=== PATIENT | female | born 1965 | race Caucasian/White ===

== ENCOUNTER 2016-07-24 07:43 | Inpatient (IN) | payer BC ==
[2016-07-05 08:08] VITALS: Ht 157.5 cm; Wt 83.1 kg
[2016-07-05 09:03] VITALS: BP_SYST 128; RESP 20; TEMP 98.2
[~2016-07-24] VITALS: Ht 157.5 cm; Wt 83.1 kg
[2016-07-24] VITALS (25 sets, daily range): BP systolic 109–160; RESP 12–20; TEMP 97.2–98.3
[~2016-07-24 07:43] MED LIST: BACITRACIN 50,000 UNITS INJ IRRIG ONE
[2016-07-24] MEDS ORDERED: GLYCOPYRROLATE 0.2 MG/ML VIAL IV ONE (09:20)
[2016-07-24] MEDS ORDERED: SCOPOLAMINE PATCH TRANSDERM ONE (09:20)
[2016-07-24] MEDS ORDERED: LIDOCAINE 1% BUFFERED 1 ML SYR INTRADERM PRN (09:20)
[2016-07-24] MEDS ORDERED: LACT RINGERS 1,000 ML IV SCH (09:20)
[2016-07-24] MEDS ORDERED: MIDAZOLAM 2 MG/2 ML INJ IV ONE (09:20)
[2016-07-24] MEDS ORDERED: ONDANSETRON 4 MG VIAL IV ONE (09:20)
[2016-07-24] MEDS ORDERED: SODIUM CHLORIDE 0.9% IV ONE ×4 (09:40)
[2016-07-24] MEDS ORDERED: TRANEXAMIC ACID IV ONE ×4 (09:40)
[2016-07-24] MEDS ORDERED: CEFAZOLIN 2,000 MG in SODIUM CHLORIDE 0.9% 100 ML IV ONE (10:00)
[2016-07-24] MEDS ORDERED: ROPIVACAINE 0.5% 139 MG, EPINEPHrine 1:1,000 0.2 MG, KETOROLAC INJ 30 MG, MORPHINE 10 MG SUBQ ONE ×4 (10:00)
[2016-07-24] MEDS ORDERED: NEOSTIGMINE 10 MG/10 ML VIAL IV ONE (11:13)
[2016-07-24] MEDS ORDERED: ROCURONIUM 50 MG VIAL IV ONE (11:13)
[2016-07-24] MEDS ORDERED: KETAMINE INJ 50 MG/ML VIAL IV ONE (11:13)
[2016-07-24] MEDS ORDERED: LIDOCAINE 2% SYR 5 ML IV ONE (11:13)
[2016-07-24] MEDS ORDERED: FENTANYL 100 MCG/2 ML AMP IV ONE ×2 (11:13)
[2016-07-24] MEDS ORDERED: DEXAMETHASONE 4 MG/ML VIAL IV ONE (11:13)
[2016-07-24] MEDS ORDERED: ESMOLOL 100 MG/10 ML VL IV ONE (11:13)
[2016-07-24] MEDS ORDERED: DILAUDID 1 MG/ML AMP IV ONE (11:13)
[2016-07-24] MEDS ORDERED: PROPOFOL 20 ML PER ML IV ONE (11:13)
[2016-07-24] MEDS ORDERED: MORPHINE 2 MG/ML SYR IV PRN (11:50)
[2016-07-24] MEDS ORDERED: MEPERIDINE 25 MG/ML IV PRN (11:50)
[2016-07-24] MEDS ORDERED: MORPHINE 4 MG/ML SYR IV PRN (11:50)
[2016-07-24] MEDS ORDERED: OXYCODONE 5 MG TAB PO PRN (11:50)
[2016-07-24] MEDS ORDERED: ONDANSETRON 4 MG VIAL IV PRN ×2 (11:50→13:45)
[2016-07-24] MEDS ORDERED: SALINE FLUSH 10 ML FLUSH PRN (13:45)
[2016-07-24] MEDS ORDERED: D5-1/2-NS W/KCL 20MEQ/L 1,000 ML IV SCH (13:45)
[2016-07-24] MEDS ORDERED: KETOROLAC 30 MG/ML VIAL IV PRN (13:45)
[2016-07-24] MEDS ORDERED: MAG HYDROX 30 ML UDC PO PRN (13:45)
[2016-07-24] MEDS ORDERED: ONDANSETRON 4 MG TAB PO PRN (13:45)
[2016-07-24] MEDS: DILAUDID 1 MG/ML AMP IV PRN ×3 (14:01→14:13)
[2016-07-24] MEDS ORDERED: BUPIVACA/EPI 0.5% 50ML EPIDURAL ONE (14:03)
[2016-07-24] MEDS ORDERED: MISSING DOSE XX ONE (17:10)
[2016-07-24] MEDS: CEFAZOLIN 2,000 MG in SODIUM CHLORIDE 0.9% 100 ML IV SCH ×2 (17:15→23:07)
[2016-07-24] MEDS: DIPHENHYDRAMINE 25 MG CAP PO PRN (17:15)
[2016-07-24] MEDS ORDERED: Ibuprofen 800 MG TAB PO PRN (19:30)
[2016-07-24] MEDS: SALINE FLUSH 10 ML FLUSH SCH (19:52)
[2016-07-24] MEDS ORDERED: DOCUSATE SOD 100 MG CAP PO SCH (21:00)
[2016-07-24] MEDS: PANTOPRAZOLE 40 MG TAB PO SCH (21:00)
[2016-07-24] MEDS: DOCUSATE SOD 100 MG CAP PO SCH (21:01)
[2016-07-24] MEDS: SENNA 8.6 MG TAB PO SCH (21:04)
[2016-07-24] MEDS: MORPHINE 2 MG/ML SYR IV PRN (23:13)
[2016-07-25] MEDS: CEFAZOLIN 2,000 MG in SODIUM CHLORIDE 0.9% 100 ML IV SCH ×2 (04:10→10:10)
[2016-07-25 04:42] VITALS: BP_SYST 131; RESP 16; TEMP 98.4
[2016-07-25] MEDS: SODIUM CHLORIDE 0.9% FLUSH BAG 500 ML IV SCH (05:42)
[2016-07-25] MEDS: PANTOPRAZOLE 40 MG TAB PO SCH ×2 (05:44→17:26)
[2016-07-25] MEDS: FONDAPARINUX 2.5 MG SYR SUBQ SCH (05:44)
[2016-07-25 07:42] VITALS: BP_SYST 128; RESP 20; TEMP 98.3
[2016-07-25] MEDS: SALINE FLUSH 10 ML FLUSH SCH ×2 (08:30→21:25)
[2016-07-25] MEDS: DOCUSATE SOD 100 MG CAP PO SCH ×2 (08:30→21:25)
[2016-07-25] MEDS: MULTIVITS/MINERALS (THERAGRAN M) TAB PO SCH (08:31)
[2016-07-25] MEDS: POLYETHYLENE GLYCOL 17 GM PACKET PO SCH (08:31)
[2016-07-25] MEDS: SENNA 8.6 MG TAB PO SCH ×3 (08:31→22:08)
[2016-07-25] MEDS ORDERED: MAG HYDROX 30 ML UDC PO SCH (09:00)
[2016-07-25] MEDS ORDERED: ACETAMINOPHEN 500 MG TAB PO PRN (09:40)
[2016-07-25] MEDS: ALU/MAG/SIM 30 ML UDC PO PRN (10:07)
[2016-07-25] MEDS: MORPHINE 2 MG/ML SYR IV PRN ×2 (10:15→17:27)
[2016-07-25 12:11] VITALS: BP_SYST 137; RESP 20; TEMP 98.4
[2016-07-25] MEDS ORDERED: BISACODYL 10 MG SUPP RECTAL PRN (15:55)
[2016-07-25] MEDS ORDERED: FLEET ENEMA 132 ML BTL RECTAL PRN (15:55)
[2016-07-25 16:18] VITALS: BP_SYST 150; RESP 18; TEMP 98.2
[2016-07-25 19:43] VITALS: BP_SYST 146; RESP 18; TEMP 98.1
[2016-07-25] MEDS: MAG HYDROX 30 ML UDC PO SCH (21:25)
[2016-07-25] MEDS: ZOLPIDEM 5 MG TAB PO PRN (21:25)
[2016-07-25 23:45] VITALS: BP_SYST 140; RESP 18; TEMP 98
[2016-07-26] MEDS: MORPHINE 4 MG/ML SYR IV PRN ×4 (00:59→22:08)
[2016-07-26] MEDS: PANTOPRAZOLE 40 MG TAB PO SCH ×2 (06:00→17:05)
[2016-07-26] MEDS: SODIUM CHLORIDE 0.9% FLUSH BAG 500 ML IV SCH (06:00)
[2016-07-26] MEDS: FONDAPARINUX 2.5 MG SYR SUBQ SCH (06:00)
[2016-07-26 08:03] VITALS: BP_SYST 144; RESP 18; TEMP 98.6
[2016-07-26] MEDS: MULTIVITS/MINERALS (THERAGRAN M) TAB PO SCH (08:51)
[2016-07-26] MEDS: DOCUSATE SOD 100 MG CAP PO SCH ×2 (08:51→22:08)
[2016-07-26] MEDS: POLYETHYLENE GLYCOL 17 GM PACKET PO SCH (08:51)
[2016-07-26] MEDS: SALINE FLUSH 10 ML FLUSH SCH ×2 (08:51→20:00)
[2016-07-26] MEDS: MAG HYDROX 30 ML UDC PO SCH ×2 (08:51→22:08)
[2016-07-26] MEDS: SENNA 8.6 MG TAB PO SCH (08:51)
[2016-07-26] MEDS: OXYCODONE/APAP 7.5/325 TAB PO PRN ×3 (09:37→22:08)
[2016-07-26 12:03] VITALS: BP_SYST 146; RESP 20; TEMP 98.3
[2016-07-26 15:42] VITALS: BP_SYST 132; RESP 18; TEMP 98.5
[2016-07-26 19:23] VITALS: BP_SYST 134; RESP 16; TEMP 98.8
[2016-07-26] MEDS: ZOLPIDEM 5 MG TAB PO PRN (22:08)
[2016-07-26 22:30] VITALS: BP_SYST 150; RESP 16; TEMP 98.8
[2016-07-27] MEDS: MORPHINE 4 MG/ML SYR IV PRN ×4 (00:46→06:50)
[2016-07-27] MEDS: OXYCODONE/APAP 7.5/325 TAB PO PRN ×3 (03:28→12:40)
[2016-07-27 03:34] VITALS: BP_SYST 126; RESP 18; TEMP 99.3
[2016-07-27] MEDS: DIPHENHYDRAMINE 25 MG CAP PO PRN (04:00)
[2016-07-27] MEDS: SODIUM CHLORIDE 0.9% FLUSH BAG 500 ML IV SCH (04:39)
[2016-07-27] MEDS: FONDAPARINUX 2.5 MG SYR SUBQ SCH (05:22)
[2016-07-27] MEDS: PANTOPRAZOLE 40 MG TAB PO SCH (07:00)
[2016-07-27 07:29] VITALS: BP_SYST 128; RESP 18; TEMP 98.5
[2016-07-27] MEDS: SALINE FLUSH 10 ML FLUSH SCH (08:00)
[2016-07-27] MEDS: MAG HYDROX 30 ML UDC PO SCH (08:00)
[2016-07-27] MEDS: POLYETHYLENE GLYCOL 17 GM PACKET PO SCH (08:07)
[2016-07-27] MEDS: MULTIVITS/MINERALS (THERAGRAN M) TAB PO SCH (08:08)
[2016-07-27] MEDS: SENNA 8.6 MG TAB PO SCH (08:08)
[2016-07-27] MEDS: DOCUSATE SOD 100 MG CAP PO SCH (08:08)
[2016-07-27] MEDS ORDERED: REMOVE SCOPALAMINE PATCH XX ONE (09:20)
[2016-07-27 11:54] VITALS: BP_SYST 136; RESP 16; TEMP 98.5
[2016-07-27] MEDS: ALU/MAG/SIM 30 ML UDC PO PRN (12:43)
[2016-07-27 12:56] VITALS: BP_SYST 136; RESP 16; TEMP 98.5
== END 2016-07-27 14:59 | disposition home health service (06) | DRG 470 ==
LOC: ENRESERVDT → ENRESERVTM → SDS 08:57 → ENPENDDIS 08:57 → 2NO 14:33 → EEVIPCON 16:35
PROVIDERS: ADMIT Internal Medicine; ATTEND Internal Medicine
PROC: 3E0T3CZ (ICD-10-PCS; 2016-07-24)
PROC: 0SRD0J9 Replacement of Left Knee Joint with Synthetic Substitute, Cemented, Open Approach (ICD-10-PCS; principal; 2016-07-24 11:00)
DX: M17.12 Unilateral primary osteoarthritis, left knee (principal); E89.0 Postprocedural hypothyroidism; I25.2 Old myocardial infarction; E78.5 Hyperlipidemia, unspecified; R29.90 Unspecified symptoms and signs involving the nervous system; K21.9 Gastro-esophageal reflux disease without esophagitis; Z72.0 Tobacco use; I25.10 Atherosclerotic heart disease of native coronary artery without angina pectoris
CPT/HCPCS: 80053; 81025; 84439; 84443; 85025; 86850; 86900; 86901; 94762; 94799